=== PATIENT | male | born 1950 | race Caucasian/White ===

== ENCOUNTER 2018-05-15 22:39 | Inpatient (IN) | payer OTHER ==
[2018-05-15 22:48] VITALS: BMI 39.5
[2018-05-16] MEDS ORDERED: SODIUM CHLORIDE 1,000 ML IV SCH (02:00)
--- NOTE | 2018-05-16 02:20 | PDOC ---
History of Present Illness <Amberly Ramon - Last Filed: 05/16/18 07:03> - General History Source: Patient Exam Limitations: No Limitations - History of Present Illness Initial Comments: 05/16/18 02:17 Patient is a 67 year old male with h/o DM, Neuropathy, HLD, glaucoma, PAD, asthma/COPD, arthritis, and carotid endarterectomy, femoropopliteal, complaining of diarrhea 4 days. Patient states he's been having watery diarrhea and a lot of gas, with no blood no abdominal pain no fever no chills. He denies any antibiotic use, no recent travel, no contact. 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 Tonight states he was dizzylightheaded and his legs were wobbly. PMD: Dr. Orellana PMHX: as above PSOCHX: (+) cig 1/2PPD, (-) etoh, (-) drugs ALL: NKDA GENERAL/CONSTITUTIONAL: [No fever or chills. (+) weakness. No weight change.] HEAD, EYES, EARS, NOSE AND THROAT: [No change in vision. No ear pain or discharge. No sore throat.] CARDIOVASCULAR: [No chest pain or shortness of breath.] RESPIRATORY: [No cough, wheezing, or hemoptysis.] GASTROINTESTINAL: [No nausea, vomiting, (+) diarrhea, (-) constipation. No rectal bleeding.] GENITOURINARY: [No dysuria, frequency, or change in urination.] MUSCULOSKELETAL: [No joint or muscle swelling or pain. No neck or back pain.] SKIN AND BREASTS: [No rash or easy bruising.] NEUROLOGIC: [No headache, vertigo, loss of consciousness, or loss of sensation.] PSYCHIATRIC: [No depression or anxiety.] ENDOCRINE: [No increased thirst. No abnormal weight change.] HEMATOLOGIC/LYMPHATIC: [No anemia, easy bleeding, or history of blood clots.] ALLERGIC/IMMUNOLOGIC: [No hives or skin allergy. No latex allergy.] GENERAL: [The patient is awake, alert, and fully oriented, in no acute distress. ] HEAD: [Normal with no signs of trauma.] EYES: [Pupils equal, round and reactive to light, extraocular movements intact, sclera anicteric, conjunctiva clear.] ENT: [Ears normal, nares patent, oropharynx clear without exudates. Moist mucous membranes.] NECK: [Normal range of motion, supple without lymphadenopathy, JVD, or masses.] LUNGS: [Breath sounds equal, clear to auscultation bilaterally. No wheezes, and no crackles.] HEART: [Regular rate and rhythm, normal S1 and S2 without murmur, rub.] ABDOMEN: [Soft, nontender, normoactive bowel sounds. obese, No guarding, no rebound. No masses.] EXTREMITIES: [Normal range of motion, no edema. No clubbing or cyanosis. No cords, erythema, or tenderness.] NEUROLOGICAL: [Cranial nerves II through XII grossly intact. Normal speech, normal gait.] PSYCH: [Normal mood, normal affect.] SKIN: [Warm, Dry, normal turgor, no rashes or lesions noted.] <Chula Rosas - Last Filed: 05/16/18 07:44> - General Chief Complaint: Diarrhea Stated Complaint: DIARRHEA Time Seen by Provider: 05/16/18 01:40 Past History <mAberly Ramon - Last Filed: 05/16/18 07:03> - Past Medical History Anemia: No Asthma: No Cancer: No Cardiac Disorders: No CVA: No COPD: Yes CHF: No Dementia: No Diabetes: Yes (NIDDM) GI Disorders: No Disorders: No HTN: No Hypercholesterolemia: Yes Liver Disease: No Seizures: No Thyroid Disease: No Other medical history: glaucoma - Surgical History Abdominal Surgery: No Appendectomy: No Cardiac Surgery: No Cholecystectomy: No Lung Surgery: No Neurologic Surgery: No Orthopedic Surgery: No - Suicide/Smoking/Psychosocial Hx Smoking History: Current every day smoker Have you smoked in the past 12 months: Yes Number of Cigarettes Smoked Daily: 10 Information on smoking cessation initiated: No 'Breaking Loose' booklet given: 09/15/16 Hx Alcohol Use: No Drug/Substance Use Hx: No Substance Use Type: None Hx Substance Use Treatment: No <Chula Rosas - Last Filed: 05/16/18 07:44> - Past Medical History Allergies/Adverse Reactions: Allergies Allergy/AdvReac Type Severity Reaction Status Date / Time No Known Drug Allergies Allergy Verified 05/15/18 22:43 Home Medications: Ambulatory Orders Aspirin [ASA -] 81 mg PO DAILY #0 tab.chew 05/18/13 Clopidogrel Bisulfate [Plavix -] 75 mg PO DAILY #0 tablet 05/18/13 Multivitamin [Multiple Vitamins] 1 each PO DAILY #0 tablet 05/18/13 Simvastatin [Zocor -] 20 mg PO HS #0 tablet 05/18/13 metFORMIN HCL [Glucophage -] 500 mg PO BID #0 tablet 05/18/13 Oxycodone HCl/Acetaminophen [Percocet 10-325 mg Tablet] 1 - 2 tab PO Q4H PRN 03/25 Meloxicam 7.5 mg PO DAILY 09/15/16 Albuterol Sulfate Inhaler - [Ventolin Hfa Inhaler -] 1 - 2 inh PO QID PRN Zolpidem Tartrate [Ambien] 10 mg GT HS PRN #30 tablet MDD 1 01/06/17 Bimatoprost [Lumigan] 1 drop IO DAILY 05/16/18 Brimonidine Tartrate/Timolol [Combigan Eye Drops] 5 ml OP BID 05/16/18 Brinzolamide [Azopt] 5 ml OP TID 05/16/18 Ketorolac Tromethamine/Pf [Acuvail] 1 each OP QID 05/16/18 *Physical Exam - Vital Signs Last Vital Signs Temp Pulse Resp BP Pulse Ox 98.5 F 70 20 146/65 98 05/15/18 22:44 05/15/18 22:44 05/15/18 22:44 05/15/18 22:44 05/15/18 22:44 <Amberly Ramon - Last Filed: 05/16/18 07:03> - Vital Signs Last Vital Signs Temp Pulse Resp BP Pulse Ox 98.5 F 70 20 146/65 98 05/15/18 22:44 05/15/18 22:44 05/15/18 22:44 05/15/18 22:44 05/15/18 22:44 <Chula Rosas - Last Filed: 05/16/18 07:44> ED Treatment Course - LABORATORY CBC & Chemistry Diagram: 05/16/18 02:56 05/16/18 02:56 - ADDITIONAL ORDERS Additional order review: Laboratory Results 05/16/18 02:56 Sodium 141 Potassium 4.4 Chloride 111 H Carbon Dioxide 19 L D Anion Gap 11 BUN 30 H Creatinine 2.4 H Creat Clearance w eGFR 27.06 Random Glucose 151 H D Calcium 9.1 Total Bilirubin 0.2 AST 21 D ALT 28 D Alkaline Phosphatase 100 Creatine Kinase 118 Troponin I < 0.02 D Total Protein 7.3 Albumin 3.7 05/16/18 02:56 RBC 5.01 MCV 93.9 MCHC 32.9 RDW 14.0 MPV 9.3 Neutrophils % 59.2 Lymphocytes % 22.9 Monocytes % 7.2 Eosinophils % 10.5 H Basophils % 0.2 - Medications Given in the ED: ED Medications Discontinued Medications Generic Name Dose Route Start Last Admin Trade Name Freq PRN Reason Stop Dose Admin Metronidazole 500 mg in 100 mls @ 100 mls/hr 05/16/18 04:28 05/16/18 05:03 Flagyl 500mg Premixed Ivpb - IVPB 05/16/18 05:27 100 mls/hr ONCE ONE Administration Levofloxacin 500 mg in 100 mls @ 100 mls/hr 05/16/18 04:29 05/16/18 05:03 Levaquin 500 Mg Premixed Ivpb - IVPB 05/16/18 05:28 100 mls/hr ONCE ONE Administration Protocol <Amberly Ramon - Last Filed: 05/16/18 07:03> - LABORATORY CBC & Chemistry Diagram: 05/16/18 02:56 05/16/18 02:56 <Chula Rosas - Last Filed: 05/16/18 07:44> Medical Decision Making - Medical Decision Making 05/16/18 07:03 EXAM: CT ABDOMEN \T\ PELVIS CT W/O CONTR HISTORY: Diarrhea COMPARISON: None. FINDINGS: Abdomen Liver: Normal Spleen: Normal Pancreas: Normal Gallbladder: There is intermediate high density in the gallbladder suggesting stones and sludge. The gallbladder is mildly distended Stomach: Normal Small bowel: Normal Large bowel: Normal Appendix: Not seen Adrenals:Normal Kidneys: Normal Vascular: There are moderate atherosclerotic changes Lymphatic: Normal Peritoneal: No free peritoneal air or fluid Pelvis: Uterus: Not seen Rectum: Normal Bladder: Normal The inferior thorax: Normal General: Skeletal: Normal Abdominal wall: Normal IMPRESSION: No acute findings Individualized dose optimization techniques were used for this CT. THIS DOCUMENT HAS BEEN ELECTRONICALLY SIGNED Donal Ochoa MD 05/16/2018 06:16 EST <Amberly Ramon Last Filed: 05/16/18 07:03> - Medical Decision Making 05/16/18 02:17 Patient is a 67 year old male with h/o DM, Neuropathy, HLD, glaucoma, PAD, asthma/COPD, arthritis, and carotid endarterectomy, femoropopliteal, complaining of diarrhea 4 days. Patient has diarrhea of unknown etiology. Will send stool for C. difficile, culture, O&P Labs including troponin, EKG, chest x-ray IV fluids. Labs reviewed noted to have elevated creatinine 2.4, baseline 1.7, suggestive of dehydration. Case was discussed with Dr. Umana and will admit to the hospital. Recommend dose of Levaquin and Flagyl <Chula Rosas - Last Filed: 05/16/18 07:44> *DC/Admit/Observation/Transfer <Amberly Ramon - Last Filed: 05/16/18 07:03> - Discharge Dispostion Decision to Admit order: Yes <Chula Rosas - Last Filed: 05/16/18 07:44> Diagnosis at time of Disposition: Dehydration Diarrhea Qualifiers: Diarrhea type: unspecified type Qualified Code(s): R19.7 - Diarrhea, unspecified - Discharge Dispostion Condition at time of disposition: Stable - Referrals Referrals: Jermaine Orellana MD [Primary Care Provider] - - Patient Instructions - Post Discharge Activity
[2018-05-16 03:13] LABS: BASO % 0.2 % (0-2.0); EOS % 10.5 % (0-4.5); HEMATOCRIT 47.1 % (35.4-49); HEMOGLOBIN 15.5 GM/dL (11.7-16.9); LYMPH % 22.9 % (8-40); MCH 30.9 pg (25.7-33.7); MCHC 32.9 g/dl (32.0-35.9); MEAN CELL VOLUME 93.9 fl (80-96); MEAN PLT VOLUME 9.3 fl (7.5-11.1); MONO % 7.2 % (3.8-10.2); NEUT % 59.2 % (42.8-82.8); PLATELET COUNT 267 K/MM3 (134-434); RBC 5.01 M/mm3 (4.00-5.60); WHITE BLOOD COUNT 14.2 K/mm3 (4.0-10.0)
[2018-05-16 03:35] LABS: ALBUMIN 3.7 g/dl (3.4-5.0); ANION GAP 11 (8-16); BILIRUBIN,TOTAL 0.2 mg/dL (0.2-1.0); BLOOD UREA NITROGEN 30 mg/dL (7-18); CALCIUM 9.1 mg/dL (8.5-10.1); CHLORIDE 111 mmol/L (98-107); CO2 19 mmol/L (21-32); CREATININE 2.4 mg/dL (0.7-1.3); GLUCOSE,RANDOM 151 mg/dL (74-106); SGPT/ALT 28 U/L (12-78); SODIUM 141 mmol/L (136-145); TOT PROT 7.3 g/dl (6.4-8.2)
[2018-05-16 03:38] LABS: ALK PHOS 100 U/L (45-117)
[2018-05-16 03:39] LABS: POTASSIUM 4.4 mmol/L (3.5-5.1); SGOT/AST 21 U/L (15-37)
[2018-05-16] MEDS ORDERED: DEXTROSE 5%-0.45% SALINE 1,000 ML IV SCH (09:45)
[2018-05-16] MEDS ORDERED: PATIENT'S OWN MEDICATION (NON-FORMULARY) (Bimatoprost [Lumigan] 1 DROP) IO SCH (10:00)
[2018-05-16] MEDS ORDERED: PATIENT'S OWN MEDICATION (NON-FORMULARY) (Brimonidine Tartrate/Timolol [Combigan 0.2%-0.5% OP SCH (10:00)
--- NOTE | 2018-05-16 11:19 | CON.GI ---
Consult Consult Specialty:: GI Reason for Consultation:: diarrhea x 2 days - History of Present Illness History of Present Illness: Chart reviewed. Events noted. ED records reviewed. per initial intake: Patient is a 67 year old male with h/o DM, Neuropathy, HLD, glaucoma, PAD, asthma/COPD, arthritis, and carotid endarterectomy, femoropopliteal, complaining of diarrhea 4 days. Patient states he's been having watery diarrhea and a lot of gas, with no blood no abdominal pain no fever no chills. He denies any antibiotic use, no recent travel, no contact. 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 Tonight states he was dizzylightheaded and his legs were wobbly. The pt was seen in ED. His was at the beside. Acute onset, variable volume, watery bms up to q15 min x 2 days. Imroved while in ED. W/o nausea, vomiting, dyspepsia, abdominal pain, fever, chills, jaundice , tenismus. No melena, or hematochezia. Worse after meals, alleviated by NPO. No weight loss. No prior history of the same. Never had screening colonoscopy. No new medications, changes in diet. No eating out, travelling, or exposure to ill. 's asymptomatic. Using splenda for many years w/o issues. BS under control, around 137, postprandial, per . Family history's noncontributory. - History Source History Provided By: Patient, Family Member, Medical Record - Alcohol/Substance Use Hx Alcohol Use: No - Smoking History Smoking history: Current every day smoker Have you smoked in the past 12 months: Yes Aproximately how many cigarettes per day: 10 Home Medications - Allergies Allergies/Adverse Reactions: Allergies Allergy/AdvReac Type Severity Reaction Status Date / Time No Known Drug Allergies Allergy Verified 05/15/18 22:43 - Home Medications Home Medications: Ambulatory Orders Aspirin [ASA -] 81 mg PO DAILY #0 tab.chew 05/18/13 Clopidogrel Bisulfate [Plavix -] 75 mg PO DAILY #0 tablet 05/18/13 Multivitamin [Multiple Vitamins] 1 each PO DAILY #0 tablet 05/18/13 Simvastatin [Zocor -] 20 mg PO HS #0 tablet 05/18/13 metFORMIN HCL [Glucophage -] 500 mg PO BID #0 tablet 05/18/13 Oxycodone HCl/Acetaminophen [Percocet 10-325 mg Tablet] 1 - 2 tab PO Q4H PRN 03/25 Meloxicam 7.5 mg PO DAILY 09/15/16 Albuterol Sulfate Inhaler - [Ventolin Hfa Inhaler -] 1 - 2 inh PO QID PRN Zolpidem Tartrate [Ambien] 10 mg GT HS PRN #30 tablet MDD 1 01/06/17 Bimatoprost [Lumigan] 1 drop IO DAILY 05/16/18 Brimonidine Tartrate/Timolol [Combigan Eye Drops] 5 ml OP BID 05/16/18 Brinzolamide [Azopt] 5 ml OP TID 05/16/18 Ketorolac Tromethamine/Pf [Acuvail] 1 each OP QID 05/16/18 Family Disease History - Family Disease History Family History: Unremarkable Review of Systems Findings/Remarks: as per HPI, H&P,ED Physical Exam-GI Vital Signs: Vital Signs Temperature 98.5 F 05/15/18 22:44 Pulse Rate 70 05/15/18 22:44 Respiratory Rate 20 05/15/18 22:44 Blood Pressure 146/65 05/15/18 22:44 O2 Sat by Pulse Oximetry (%) 98 05/15/18 22:44 Constitutional: Yes: Well Nourished, No Distress, Calm Eyes: Yes: Conjunctiva Clear HENT: Yes: Atraumatic, Other (poor dental state) Neck: Yes: Supple Cardiovascular: Yes: Regular Rate and Rhythm Respiratory: Yes: Regular Gastrointestinal Inspection: No: Ascites, Distention ...Auscultate: Yes: Normoactive Bowel Sounds ...Palpate: Yes: Soft. No: Firm/Rigid, Guarding, Mass, Tenderness, Tenderness, Epigastium, Tenderness, Rebound Neurological: Yes: Alert, Oriented Labs: CBC, BMP 05/16/18 02:56 05/16/18 02:56 Laboratory Last Values WBC 14.2 K/mm3 (4.0-10.0) H 05/16/18 02:56 RBC 5.01 M/mm3 (4.00-5.60) 05/16/18 02:56 Hgb 15.5 GM/dL (11.7-16.9) 05/16/18 02:56 Hct 47.1 % (35.4-49) 05/16/18 02:56 MCV 93.9 fl (80-96) 05/16/18 02:56 MCH 30.9 pg (25.7-33.7) 05/16/18 02:56 MCHC 32.9 g/dl (32.0-35.9) 05/16/18 02:56 RDW 14.0 % (11.9-15.9) 05/16/18 02:56 Plt Count 267 K/MM3 (134-434) D 05/16/18 02:56 MPV 9.3 fl (7.5-11.1) 05/16/18 02:56 Absolute Neuts (auto) 8.4 # 05/16/18 02:56 Neutrophils % 59.2 % (42.8-82.8) 05/16/18 02:56 Lymphocytes % 22.9 % (8-40) 05/16/18 02:56 Monocytes % 7.2 % (3.8-10.2) 05/16/18 02:56 Eosinophils % 10.5 % (0-4.5) H 05/16/18 02:56 Basophils % 0.2 % (0-2.0) 05/16/18 02:56 Nucleated RBC % 0 % (0-0) 05/16/18 02:56 Sodium 141 mmol/L (136-145) 05/16/18 02:56 Potassium 4.4 mmol/L (3.5-5.1) 05/16/18 02:56 Chloride 111 mmol/L (98-107) H 05/16/18 02:56 Carbon Dioxide 19 mmol/L (21-32) L D 05/16/18 02:56 Anion Gap 11 (8-16) 05/16/18 02:56 BUN 30 mg/dL (7-18) H 05/16/18 02:56 Creatinine 2.4 mg/dL (0.7-1.3) H 05/16/18 02:56 Creat Clearance w eGFR 27.06 (>60) 05/16/18 02:56 Random Glucose 151 mg/dL (74-106) H D 05/16/18 02:56 Calcium 9.1 mg/dL (8.5-10.1) 05/16/18 02:56 Total Bilirubin 0.2 mg/dL (0.2-1.0) 05/16/18 02:56 AST 21 U/L (15-37) D 05/16/18 02:56 ALT 28 U/L (12-78) D 05/16/18 02:56 Alkaline Phosphatase 100 U/L (45-117) 05/16/18 02:56 Creatine Kinase 118 IU/L (39-308) 05/16/18 02:56 Troponin I < 0.02 ng/ml (0.00-0.05) D 05/16/18 02:56 Total Protein 7.3 g/dl (6.4-8.2) 05/16/18 02:56 Albumin 3.7 g/dl (3.4-5.0) 05/16/18 02:56 Imaging - Results Cat Scan: Report Reviewed (distended GB) Problem List - Problems (1) Gastroenteritis Code(s): K52.9 - NONINFECTIVE GASTROENTERITIS AND COLITIS, UNSPECIFIED (2) Diarrhea Code(s): R19.7 - DIARRHEA, UNSPECIFIED Qualifiers: Diarrhea type: unspecified type Qualified Code(s): R19.7 - Diarrhea, unspecified Assessment/Plan Acute onset watery diarrhea in a 67M with multiple chronic medical problems and HPI as above. Suspect viral/premade toxin/infectious gastroenteritis. Rule out bacterial/parasitic etiology. DM, artificial sweeteners may be contributing. Stool testing for infectious etiologies incl. c. diff. PO hydration [place] HGB A1C Thyroid function BRAT diet
[2018-05-16 11:28] LABS: BASO % 0.9 % (0-2.0); EOS % 8.8 % (0-4.5); HEMATOCRIT 39.8 % (35.4-49); HEMOGLOBIN 13.2 GM/dL (11.7-16.9); LYMPH % 18.5 % (8-40); MCH 31.1 pg (25.7-33.7); MCHC 33.1 g/dl (32.0-35.9); MEAN CELL VOLUME 93.8 fl (80-96); MEAN PLT VOLUME 8.8 fl (7.5-11.1); MONO % 8.7 % (3.8-10.2); NEUT % 63.1 % (42.8-82.8); PLATELET COUNT 203 K/MM3 (134-434); RBC 4.25 M/mm3 (4.00-5.60); RDW 13.8 % (11.9-15.9); WHITE BLOOD COUNT 13.8 K/mm3 (4.0-10.0)
--- NOTE | 2018-05-16 11:42 | EKG ---
Test Reason : Blood Pressure : / mmHG Vent. Rate : 075 BPM Atrial Rate : 075 BPM P-R Int : 172 ms QRS Dur : 098 ms QT Int : 402 ms P-R-T Axes : 035 -11 030 degrees QTc Int : 448 ms NORMAL SINUS RHYTHM WHEN COMPARED WITH ECG OF 03-NOV-2017 08:49, NO SIGNIFICANT CHANGE WAS FOUND Confirmed by EDIN LEAVITT MD ([id number]) on 05/16/2018 11:42:07 AM Referred By: Confirmed By:EDIN LEAVITT MD
[2018-05-16] MEDS ORDERED: ASPIRIN 81 MG CHEWABLE TABLETS ONE (13:19)
[2018-05-16] MEDS ORDERED: CLOPIDOGREL BISULFATE 75 MG TABLET (FP) ONE (13:19)
[2018-05-16] MEDS: ASPIRIN 81 MG CHEWABLE TABLETS PO SCH (13:20)
[2018-05-16] MEDS: CLOPIDOGREL BISULFATE 75 MG TABLET (FP) PO SCH (13:20)
[2018-05-16] MEDS: INSULIN SLIDING SCALE (NOVOLOG) 1 VIAL SQ SCH ×3 (13:51→21:52)
[2018-05-16] MEDS: CHOLESTYRAMINE/ASPARTAME 4 GM PACKET PO SCH ×4 (13:53→21:55)
[2018-05-16] MEDS ORDERED: BRINZOLAMIDE OP SCH (14:00)
--- NOTE | 2018-05-16 14:39 | CON.ID ---
Consult Consult Specialty:: infectious diseases Referred by:: Reason for Consultation:: dirrhoea,weakness - History of Present Illness Chief Complaint: dirrhoea History of Present Illness: 67 year old male with pmhx of DM, neuropathy, HLD, CKD, asthma, COPD, PAD and fem-pop surgery who presents to the ER with diarrhea. He says that he has been having severe diarrhea for the last 3 days. He complains of multiple episode per day. He says he has had over ten daily. He denies abdominal pain. He denies dysuria or hematuria. patient says he does not want to get admitted according to him his dirrhoea is ongoing and has not stopped at all and that he feels very weak was called in to evaluate the cause of dirrhoea and if this is infectious one currently patient is very agitated - History Source History Provided By: Patient Limitations to Obtaining History: No Limitations - Alcohol/Substance Use Hx Alcohol Use: No - Smoking History Smoking history: Current every day smoker Have you smoked in the past 12 months: Yes Aproximately how many cigarettes per day: 10 Home Medications - Allergies Allergies/Adverse Reactions: Allergies Allergy/AdvReac Type Severity Reaction Status Date / Time No Known Drug Allergies Allergy Verified 05/15/18 22:43 - Home Medications Home Medications: Ambulatory Orders Aspirin [ASA -] 81 mg PO DAILY #0 tab.chew 05/18/13 Clopidogrel Bisulfate [Plavix -] 75 mg PO DAILY #0 tablet 05/18/13 Multivitamin [Multiple Vitamins] 1 each PO DAILY #0 tablet 05/18/13 Simvastatin [Zocor -] 20 mg PO HS #0 tablet 05/18/13 metFORMIN HCL [Glucophage -] 500 mg PO BID #0 tablet 05/18/13 Oxycodone HCl/Acetaminophen [Percocet 10-325 mg Tablet] 1 - 2 tab PO Q4H PRN 03/25 Albuterol Sulfate Inhaler - [Ventolin HFA Inhaler -] 1 - 2 inh PO QID PRN Zolpidem Tartrate [Ambien] 10 mg GT HS PRN #30 tablet MDD 1 01/06/17 Bimatoprost [Lumigan] 1 drop IO DAILY 05/16/18 Brimonidine Tartrate/Timolol [Combigan 0.2%-0.5% Eye Drops] 5 ml OP BID Brinzolamide [Azopt] 5 ml OP TID 05/16/18 Ketorolac Tromethamine/Pf [Acuvail 0.45% Ophth Solution] 1 each OP QID 05/16/18 Brimonidine Tartrate [Alphagan 0.2% -] 1 drop OU BID drops 05/19/18 Timolol 0.5% [Timoptic 0.5%] 1 drop OU BID drops 05/19/18 Zolpidem Tartrate [Ambien] 5 mg PO HS PRN #30 tablet MDD 1 05/19/18 oxyCODONE HCL [Roxicodone -] 10 mg PO Q8H PRN #30 tablet MDD 3 05/19/18 Review of Systems - Review of Systems Constitutional: reports: No Symptoms Eyes: reports: No Symptoms HENT: reports: No Symptoms Neck: reports: No Symptoms Cardiovascular: reports: No Symptoms Respiratory: reports: No Symptoms Gastrointestinal: reports: Diarrhea Genitourinary: reports: No Symptoms Musculoskeletal: reports: No Symptoms Integumentary: reports: No Symptoms Neurological: reports: No Symptoms Endocrine: reports: No Symptoms Hematology/Lymphatic: reports: No Symptoms Psychiatric: reports: No Symptoms Physical Exam Vital Signs: Vital Signs Temperature 98.5 F 05/15/18 22:44 Pulse Rate 70 05/15/18 22:44 Respiratory Rate 20 05/15/18 22:44 Blood Pressure 146/65 05/15/18 22:44 O2 Sat by Pulse Oximetry (%) 98 05/15/18 22:44 Constitutional: Yes: Well Nourished, No Distress, Calm Eyes: Yes: Conjunctiva Clear Cardiovascular: Yes: Regular Rate and Rhythm Respiratory: Yes: Regular, CTA Bilaterally Gastrointestinal: Yes: Normal Bowel Sounds, Soft Musculoskeletal: Yes: WNL Extremities: Yes: WNL Neurological: Yes: Alert, Oriented Psychiatric: Yes: Alert, Oriented Labs: CBC, BMP 05/16/18 11:05 05/16/18 02:56 Imaging - Results Chest X-ray: Report Reviewed, Image Reviewed Cat Scan: Report Reviewed, Image Reviewed Ultrasound: Report Reviewed, Image Reviewed Assessment/Plan Problem List - Problems (1) Diarrhea Code(s): R19.7 - DIARRHEA, UNSPECIFIED Qualifiers: Diarrhea type: unspecified type Qualified Code(s): R19.7 - Diarrhea, unspecified (2) CAD (coronary artery disease) Assessment/Plan: Cont plavix Code(s): I25.10 - ATHSCL HEART DISEASE OF [place] CORONARY ARTERY W/O ANG PCTRS (3) HLD (hyperlipidemia) Assessment/Plan: Cont lipitor Code(s): E78.5 - HYPERLIPIDEMIA, UNSPECIFIED (4) COPD (chronic obstructive pulmonary disease) Code(s): J44.9 - CHRONIC OBSTRUCTIVE PULMONARY DISEASE, UNSPECIFIED looking at the history and patient symptoms there is worry that the patient might have infecve dirrhoea plan r/o cdiff r/o parasitic infections hydrations monitor for electrolytes rest as per the team will start him on vanco orally
--- NOTE | 2018-05-16 15:31 | CONSULT ---
Consult Consult Specialty:: Nephrology Reason for Consultation:: ABNER - History of Present Illness Chief Complaint: diarrhea History of Present Illness: Pt is a 67 year old male with pmhx of DM, neuropathy, HLD, CKD, asthma, COPD, PAD and fem-pop surgery who presents to the ER with diarrhea. He says that he has been having severe diarrhea for the last 3 days. He complains of multiple episode per day. He says he has had over ten daily. He denies abdominal pain. He was found to have elevated creatinine and I was called to evaluate him. He denies history of CKD. He denies dysuria or hematuria. He denies nsaid use. He is very agitated about being in the ER. - History Source History Provided By: Patient, Medical Record - Past Medical History Cardio/Vascular: Yes: HTN, Hyperlipdemia Pulmonary: Yes: COPD Renal/: Yes: Renal Inusuff Endocrine: Yes: Diabetes Mellitus - Past Surgical History Additional Surgical History: fem-pop bypass surgery - Alcohol/Substance Use Hx Alcohol Use: No - Smoking History Smoking history: Current every day smoker Have you smoked in the past 12 months: Yes Aproximately how many cigarettes per day: 10 Home Medications - Allergies Allergies/Adverse Reactions: Allergies Allergy/AdvReac Type Severity Reaction Status Date / Time No Known Drug Allergies Allergy Verified 05/15/18 22:43 - Home Medications Home Medications: Ambulatory Orders Aspirin [ASA -] 81 mg PO DAILY #0 tab.chew 05/18/13 Clopidogrel Bisulfate [Plavix -] 75 mg PO DAILY #0 tablet 05/18/13 Multivitamin [Multiple Vitamins] 1 each PO DAILY #0 tablet 05/18/13 Simvastatin [Zocor -] 20 mg PO HS #0 tablet 05/18/13 metFORMIN HCL [Glucophage -] 500 mg PO BID #0 tablet 05/18/13 Oxycodone HCl/Acetaminophen [Percocet 10-325 mg Tablet] 1 - 2 tab PO Q4H PRN 03/25 Meloxicam 7.5 mg PO DAILY 09/15/16 Albuterol Sulfate Inhaler - [Ventolin Hfa Inhaler -] 1 - 2 inh PO QID PRN Zolpidem Tartrate [Ambien] 10 mg GT HS PRN #30 tablet MDD 1 01/06/17 Bimatoprost [Lumigan] 1 drop IO DAILY 05/16/18 Brimonidine Tartrate/Timolol [Combigan Eye Drops] 5 ml OP BID 05/16/18 Brinzolamide [Azopt] 5 ml OP TID 05/16/18 Ketorolac Tromethamine/Pf [Acuvail] 1 each OP QID 05/16/18 Family Disease History - Family Disease History Family History: Denies Review of Systems - Review of Systems Constitutional: reports: Malaise. denies: Chills, Fever Eyes: reports: No Symptoms HENT: reports: No Symptoms Neck: reports: No Symptoms Cardiovascular: reports: No Symptoms Respiratory: reports: No Symptoms Gastrointestinal: reports: Diarrhea. denies: Dysphagia, Nausea, Vomiting Blood Genitourinary: reports: No Symptoms Musculoskeletal: reports: No Symptoms Integumentary: reports: No Symptoms Neurological: reports: No Symptoms Endocrine: reports: No Symptoms Hematology/Lymphatic: reports: No Symptoms Psychiatric: reports: No Symptoms Physical Exam Vital Signs: Vital Signs Temperature 98.5 F 05/15/18 22:44 Pulse Rate 70 05/15/18 22:44 Respiratory Rate 20 05/15/18 22:44 Blood Pressure 146/65 05/15/18 22:44 O2 Sat by Pulse Oximetry (%) 98 05/15/18 22:44 Constitutional: Yes: Anxious Eyes: Yes: Conjunctiva Clear HENT: Yes: Atraumatic Neck: Yes: Supple Cardiovascular: Yes: S1, S2 Respiratory: Yes: CTA Bilaterally Gastrointestinal: Yes: Soft, Abdomen, Obese Renal/: Yes: WNL Musculoskeletal: Yes: WNL Edema: No Integumentary: Yes: WNL Neurological: Yes: Oriented Psychiatric: Yes: Agitated Labs: CBC, BMP 05/16/18 11:05 05/16/18 02:56 Laboratory Tests 09/18/16 09/19/16 10/13/17 05:20 06:30 07:21 WBC Sodium Potassium Creatinine 1.5 H 1.2 1.7 H D Stool O & P Wet [place] O & P Permanent Slide 11/03/17 05/16/18 05/16/18 09:14 02:20 02:56 WBC 14.2 H Sodium Potassium Creatinine 1.7 H Stool O & P Wet [place] Pending O & P Permanent Slide Pending 05/16/18 05/16/18 02:56 11:05 WBC 13.8 H Sodium 141 Potassium 4.4 Creatinine 2.4 H Stool O & P Wet [place] O & P Permanent Slide Imaging - Results Chest X-ray: Report Reviewed Problem List - Problems (1) Dehydration Code(s): E86.0 - DEHYDRATION (2) Diarrhea Code(s): R19.7 - DIARRHEA, UNSPECIFIED Qualifiers: Diarrhea type: unspecified type Qualified Code(s): R19.7 - Diarrhea, unspecified (3) Gastroenteritis Code(s): K52.9 - NONINFECTIVE GASTROENTERITIS AND COLITIS, UNSPECIFIED (4) COPD (chronic obstructive pulmonary disease) Code(s): J44.9 - CHRONIC OBSTRUCTIVE PULMONARY DISEASE, UNSPECIFIED (5) Carotid stenosis, left Code(s): I65.22 - OCCLUSION AND STENOSIS OF LEFT CAROTID ARTERY Assessment/Plan Current Medications Generic Name Dose Route Start Last Admin Trade Name Freq PRN Reason Stop Dose Admin Aspirin 81 mg 05/16/18 10:00 05/16/18 13:20 Asa - PO 81 mg DAILY [facility] Administration Atorvastatin Calcium 10 mg 05/16/18 22:00 Lipitor - PO HS [facility] Brimonidine Tartrate 1 drop 05/16/18 10:00 Alphagan 0.2% - OU BID [facility] Cholestyramine Resin 4 gm 05/16/18 11:30 05/16/18 15:00 Questran Light Packet - PO Not Given BID [facility] Clopidogrel Bisulfate 75 mg 05/16/18 10:00 05/16/18 13:20 Plavix - PO 75 mg DAILY [facility] Administration Sodium Chloride 1,000 mls @ 150 mls/hr 05/16/18 02:00 05/16/18 03:25 Normal Saline - IV 150 mls/hr ASDIR [facility] Administration Dextrose/Sodium Chloride 1,000 mls @ 75 mls/hr 05/16/18 09:45 05/16/18 13:20 D5-1/2ns - IV 75 mls/hr ASDIR [facility] Administration Metronidazole 500 mg in 100 mls @ 100 mls/hr 05/16/18 10:00 05/16/18 13:20 Flagyl 500mg Premixed Ivpb - IVPB 100 mls/hr Q8H-IV [facility] Administration Levofloxacin 500 mg in 100 mls @ 100 mls/hr 05/16/18 10:00 05/16/18 13:53 Levaquin 500 Mg Premixed Ivpb - IVPB 100 mls/hr DAILY [facility] Administration Protocol Insulin Aspart 1 vial 05/16/18 11:00 05/16/18 13:51 Novolog Vial Sliding Scale - SQ Not Given ACHS [facility] Protocol Multivitamins/Minerals/Vitamin C 1 tab 05/16/18 10:00 Tab-A-Vit - PO DAILY [facility] Non-Formulary Medication 1 drop 05/16/18 10:00 Bimatoprost [Lumigan] IO DAILY [facility] Non-Formulary Medication 5 ml 05/16/18 14:00 Brinzolamide [Azopt] OP TID [facility] Timolol Maleate 1 drop 05/16/18 10:00 Timoptic 0.5% OU BID [facility] Impression 1. ABNER 2. CKD 3. COPD 4. DM 5. HTN 6. PVD 7. diarrhea 8. HLD 9. neuropathy Plan - check ua - send urine lytes - cont fluids - likely dehydration from diarrhea - stop mobic - stop metformin - check renal ultrasound Dr Paniagua
[2018-05-16] MEDS: BRIMONIDINE TARTRATE 0.2% OPHTHALMIC 5 ML BOTTLE OU SCH ×2 (17:33→21:51)
[2018-05-16] MEDS: MULTIVITAMINS (DAILY MVI) TABLET (FP) PO SCH (17:33)
[2018-05-16] MEDS: TIMOLOL 0.5% OPHTHALMIC SOL 5 ML BOTTLE OU SCH ×2 (17:34→21:52)
[2018-05-16] MEDS: SODIUM CHLORIDE 0.45% 1,000 ML IV SCH ×2 (17:44→21:55)
--- NOTE | 2018-05-16 19:08 | HP ---
Admitting History and Physical - Admission History of Present Illness: Pt is a 67 y/o male with PMH significant for DM, Neuropathy, HLD, glaucoma, PAD , asthma/COPD, arthritis, and carotid stenosis(s/P endarterectomy). Pt presents to the ER w/ complaints of diarrhea 4 days. Patient states he's been having watery diarrhea and a lot of gas, with no blood no abdominal pain no fever no chills. He denies any antibiotic use, no recent travel, no contact. He has been taking Imodium since with worsening of symptoms, last dose was [employer]. - Past Medical History Cardiovascular: Yes: HTN, Hyperlipdemia Pulmonary: Yes: COPD Renal/: Yes: Renal Inusuff Endocrine: Yes: Diabetes Mellitus - Past Surgical History Past Surgical History: Yes: Carotid Endarterectomy - Smoking History Smoking history: Current every day smoker Have you smoked in the past 12 months: Yes Aproximately how many cigarettes per day: 10 - Alcohol/Substance Use Hx Alcohol Use: No Home Medications - Allergies Allergies/Adverse Reactions: Allergies Allergy/AdvReac Type Severity Reaction Status Date / Time No Known Drug Allergies Allergy Verified 05/15/18 22:43 - Home Medications Home Medications: Ambulatory Orders Aspirin [ASA -] 81 mg PO DAILY #0 tab.chew 05/18/13 Clopidogrel Bisulfate [Plavix -] 75 mg PO DAILY #0 tablet 05/18/13 Multivitamin [Multiple Vitamins] 1 each PO DAILY #0 tablet 05/18/13 Simvastatin [Zocor -] 20 mg PO HS #0 tablet 05/18/13 metFORMIN HCL [Glucophage -] 500 mg PO BID #0 tablet 05/18/13 Oxycodone HCl/Acetaminophen [Percocet 10-325 mg Tablet] 1 - 2 tab PO Q4H PRN 03/25 Meloxicam 7.5 mg PO DAILY 09/15/16 Albuterol Sulfate Inhaler - [Ventolin Hfa Inhaler -] 1 - 2 inh PO QID PRN Zolpidem Tartrate [Ambien] 10 mg GT HS PRN #30 tablet MDD 1 01/06/17 Bimatoprost [Lumigan] 1 drop IO DAILY 05/16/18 Brimonidine Tartrate/Timolol [Combigan Eye Drops] 5 ml OP BID 08/06/18 Brinzolamide [Azopt] 5 ml OP TID 05/16/18 Ketorolac Tromethamine/Pf [Acuvail] 1 each OP QID 05/16/18 Family Disease History - Family Disease History Family History: Unremarkable Review of Systems - Review of Systems Constitutional: reports: Loss of Appetite HENT: reports: No Symptoms Neck: reports: No Symptoms Cardiovascular: reports: No Symptoms Respiratory: reports: No Symptoms Gastrointestinal: reports: Diarrhea Genitourinary: reports: No Symptoms Physical Examination Vital Signs: Vital Signs Temperature 97.9 F 05/16/18 10:00 Pulse Rate 75 05/16/18 10:00 Respiratory Rate 19 05/16/18 10:00 Blood Pressure 153/83 05/16/18 10:00 O2 Sat by Pulse Oximetry (%) 98 05/15/18 22:44 Constitutional: Yes: Well Nourished Neck: Yes: WNL, Supple Cardiovascular: Yes: WNL, Regular Rate and Rhythm Respiratory: Yes: WNL, Regular, CTA Bilaterally Gastrointestinal: Yes: WNL, Normal Bowel Sounds, Soft Musculoskeletal: Yes: WNL Extremities: Yes: WNL Edema: No Neurological: Yes: WNL, Alert, Oriented ...Motor Strength: WNL Labs: CBC, BMP 05/16/18 11:05 05/16/18 02:56 Problem List - Problems (1) Diarrhea Assessment/Plan: Check stool studies Cont IVF Cont IV antibxs GI and ID consults Code(s): R19.7 - DIARRHEA, UNSPECIFIED Qualifiers: Diarrhea type: unspecified type Qualified Code(s): R19.7 - Diarrhea, unspecified (2) CAD (coronary artery disease) Assessment/Plan: Cont plavix Code(s): I25.10 - ATHSCL HEART DISEASE OF [place] CORONARY ARTERY W/O ANG PCTRS (3) HLD (hyperlipidemia) Assessment/Plan: Cont lipitor Code(s): E78.5 - HYPERLIPIDEMIA, UNSPECIFIED (4) COPD (chronic obstructive pulmonary disease) Code(s): J44.9 - CHRONIC OBSTRUCTIVE PULMONARY DISEASE, UNSPECIFIED
[2018-05-16] MEDS ORDERED: PT OWN MED DRAWER 7, Y5N ONE (21:43)
[2018-05-16] MEDS ORDERED: INSULIN (NOVOLOG) ASPART 100 UNITS/ML 10ML VIAL ONE (21:43)
[2018-05-16] MEDS: ATORVASTATIN CA 10 MG TABLET (FP) PO SCH (21:50)
[2018-05-16 23:53] LABS: URINE APPEARANCE SLCLOUDY; URINE BILIRUBIN NEGATIVE (<2.0 mg/dL); URINE COLOR YELLOW; URINE GLUCOSE (UA) 2+ (NEGATIVE); URINE KETONE NEGATIVE (NEGATIVE); URINE LEUK ESTERASE NEGATIVE (NEGATIVE); URINE NITRITE NEGATIVE (NEGATIVE); URINE UROBILINOGEN NEGATIVE mg/dL (0.2-1.0)
[2018-05-16 23:55] LABS: URINE PROTEIN 3+ (NEGATIVE)
[2018-05-16 23:59] LABS: EPI CELLS RARE /HPF (FEW); URINE MUCUS RARE
[2018-05-17] MEDS ORDERED: PT OWN MED DRAWER 7, Y5N ONE (00:39)
[2018-05-17] MEDS: ZOLPIDEM TARTRATE 5 MG TABLET PO PRN (01:12)
[2018-05-17] MEDS: VANCOMYCIN 250 MG/5 ML ORAL SOLUTION PO SCH ×3 (01:13→11:35)
[2018-05-17] MEDS: INSULIN SLIDING SCALE (NOVOLOG) 1 VIAL SQ SCH ×4 (06:29→22:24)
[2018-05-17 08:06] LABS: BASO % 0.8 % (0-2.0); EOS % 8.1 % (0-4.5); HEMATOCRIT 39.9 % (35.4-49); HEMOGLOBIN 13.3 GM/dL (11.7-16.9); LYMPH % 20.4 % (8-40); MCH 31.4 pg (25.7-33.7); MCHC 33.2 g/dl (32.0-35.9); MEAN CELL VOLUME 94.6 fl (80-96); MEAN PLT VOLUME 9.1 fl (7.5-11.1); MONO % 8.7 % (3.8-10.2); PLATELET COUNT 201 K/MM3 (134-434); RBC 4.22 M/mm3 (4.00-5.60); RDW 13.8 % (11.9-15.9); WHITE BLOOD COUNT 11.6 K/mm3 (4.0-10.0)
[2018-05-17] MEDS: MULTIVITAMINS (DAILY MVI) TABLET (FP) PO SCH (09:08)
[2018-05-17] MEDS: CLOPIDOGREL BISULFATE 75 MG TABLET (FP) PO SCH (09:08)
[2018-05-17] MEDS: CHOLESTYRAMINE/ASPARTAME 4 GM PACKET PO SCH ×2 (09:15→22:23)
[2018-05-17] MEDS: ASPIRIN 81 MG CHEWABLE TABLETS PO SCH (09:16)
[2018-05-17] MEDS: TIMOLOL 0.5% OPHTHALMIC SOL 5 ML BOTTLE OU SCH ×2 (09:28→22:23)
[2018-05-17] MEDS: BRIMONIDINE TARTRATE 0.2% OPHTHALMIC 5 ML BOTTLE OU SCH ×2 (09:32→22:23)
[2018-05-17 10:01] LABS: ALBUMIN 3.3 g/dl (3.4-5.0); ALK PHOS 80 U/L (45-117); ANION GAP 14 (8-16); BILIRUBIN,TOTAL 0.5 mg/dL (0.2-1.0); BLOOD UREA NITROGEN 27 mg/dL (7-18); CALCIUM 8.3 mg/dL (8.5-10.1); CHLORIDE 116 mmol/L (98-107); CO2 16 mmol/L (21-32); CREATININE 2.1 mg/dL (0.7-1.3); GLUCOSE,RANDOM 114 mg/dL (74-106); POTASSIUM 4.3 mmol/L (3.5-5.1); SGOT/AST 18 U/L (15-37); SGPT/ALT 21 U/L (12-78); SODIUM 146 mmol/L (136-145); TOT PROT 6.1 g/dl (6.4-8.2)
--- NOTE | 2018-05-17 13:42 | PN ---
Progress Note, Physician History of Present Illness: Pt seen and examined at bedside. He is awake and alert. He says that he has not eaten any food as he is afraid of having diarrhea. He has not had any bowel movements since admission. He denies abdominal pain. - Current Medication List Current Medications: Active Medications Aspirin (Asa -) 81 mg PO DAILY [facility] Last Admin: 05/17/18 09:16 Dose: Not Given Atorvastatin Calcium (Lipitor -) 10 mg PO HS [facility] Last Admin: 05/16/18 21:50 Dose: 10 mg Brimonidine Tartrate (Alphagan 0.2% -) 1 drop OU BID [facility] Last Admin: 05/17/18 09:32 Dose: 1 drop Cholestyramine Resin (Questran Light Packet -) 4 gm PO BID [facility] Last Admin: 05/17/18 09:15 Dose: Not Given Clopidogrel Bisulfate (Plavix -) 75 mg PO DAILY [facility] Last Admin: 05/17/18 09:08 Dose: Not Given Metronidazole (Flagyl 500mg Premixed Ivpb -) 500 mg in 100 mls @ 100 mls/hr IVPB Q8H-IV [facility] Last Admin: 05/17/18 09:08 Dose: 100 mls/hr Levofloxacin (Levaquin 500 Mg Premixed Ivpb -) 500 mg in 100 mls @ 100 mls/hr IVPB DAILY [facility]; Protocol Last Admin: 05/17/18 10:47 Dose: 100 mls/hr Sodium Chloride (1/2 Normal Saline) 1,000 mls @ 83 mls/hr IV ASDIR [facility] Last Admin: 05/16/18 21:55 Dose: 83 mls/hr Insulin Aspart (Novolog Vial Sliding Scale -) 1 vial SQ ACHS [facility]; Protocol Last Admin: 05/17/18 11:34 Dose: Not Given Multivitamins/Minerals/Vitamin C (Tab-A-Vit -) 1 tab PO DAILY [facility] Last Admin: 05/17/18 09:08 Dose: 1 tab Non-Formulary Medication (Bimatoprost [Lumigan]) 1 drop IO DAILY [facility] Non-Formulary Medication (Brinzolamide [Azopt]) 5 ml OP TID [facility] Oxycodone/Acetaminophen (Percocet 5/325 -) 1 combo PO Q8H PRN PRN Reason: pain Last Admin: 05/17/18 05:59 Dose: 1 combo Timolol Maleate (Timoptic 0.5%) 1 drop OU BID [facility] Last Admin: 05/17/18 09:28 Dose: 1 drop Vancomycin HCl (Vancomycin Oral Solution) 125 mg PO Q6HPO [facility] Last Admin: 05/17/18 11:35 Dose: 125 mg Zolpidem Tartrate (Ambien -) 5 mg PO HS PRN PRN Reason: INSOMNIA Last Admin: 05/17/18 01:12 Dose: 5 mg - Objective Vital Signs: Vital Signs Temperature 98 F 05/17/18 09:00 Pulse Rate 75 05/17/18 09:00 Respiratory Rate 20 05/17/18 09:00 Blood Pressure 140/90 05/17/18 09:00 O2 Sat by Pulse Oximetry (%) 98 05/16/18 21:00 Constitutional: Yes: Anxious Eyes: Yes: Conjunctiva Clear HENT: Yes: Atraumatic Neck: Yes: Supple Cardiovascular: Yes: S1, S2 Respiratory: Yes: CTA Bilaterally Gastrointestinal: Yes: Normal Bowel Sounds, Soft Genitourinary: Yes: WNL Musculoskeletal: Yes: WNL Edema: No Neurological: Yes: Oriented Psychiatric: Yes: Oriented, Agitated Labs: CBC, BMP 05/17/18 06:00 05/17/18 06:00 - ....Imaging Ultrasound: Report Reviewed Problem List - Problems (1) Dehydration Code(s): E86.0 - DEHYDRATION (2) Diarrhea Code(s): R19.7 - DIARRHEA, UNSPECIFIED Qualifiers: Diarrhea type: unspecified type Qualified Code(s): R19.7 - Diarrhea, unspecified (3) Gastroenteritis Code(s): K52.9 - NONINFECTIVE GASTROENTERITIS AND COLITIS, UNSPECIFIED (4) COPD (chronic obstructive pulmonary disease) Code(s): J44.9 - CHRONIC OBSTRUCTIVE PULMONARY DISEASE, UNSPECIFIED (5) Carotid stenosis, left Code(s): I65.22 - OCCLUSION AND STENOSIS OF LEFT CAROTID ARTERY Assessment/Plan Current Medications Generic Name Dose Route Start Last Admin Trade Name Freq PRN Reason Stop Dose Admin Aspirin 81 mg 05/16/18 10:00 05/17/18 09:16 Asa - PO Not Given DAILY [facility] Atorvastatin Calcium 10 mg 05/16/18 22:00 05/16/18 21:50 Lipitor - PO 10 mg HS [facility] Administration Brimonidine Tartrate 1 drop 05/16/18 10:00 05/17/18 09:32 Alphagan 0.2% - OU 1 drop BID [facility] Administration Cholestyramine Resin 4 gm 05/16/18 11:30 05/17/18 09:15 Questran Light Packet - PO Not Given BID [facility] Clopidogrel Bisulfate 75 mg 05/16/18 10:00 05/17/18 09:08 Plavix - PO Not Given DAILY [facility] Metronidazole 500 mg in 100 mls @ 100 mls/hr 05/16/18 10:00 05/17/18 09:08 Flagyl 500mg Premixed Ivpb - IVPB 100 mls/hr Q8H-IV [facility] Administration Levofloxacin 500 mg in 100 mls @ 100 mls/hr 05/16/18 10:00 05/17/18 10:47 Levaquin 500 Mg Premixed Ivpb - IVPB 100 mls/hr DAILY [facility] Administration Protocol Sodium Chloride 1,000 mls @ 83 mls/hr 05/16/18 15:45 05/16/18 21:55 1/2 Normal Saline IV 83 mls/hr ASDIR [facility] Administration Insulin Aspart 1 vial 05/16/18 11:00 05/17/18 11:34 Novolog Vial Sliding Scale - SQ Not Given ACHS [facility] Protocol Multivitamins/Minerals/Vitamin C 1 tab 05/16/18 10:00 05/17/18 09:08 Tab-A-Vit - PO 1 tab DAILY [facility] Administration Non-Formulary Medication 1 drop 05/16/18 10:00 Bimatoprost [Lumigan] IO DAILY [facility] Non-Formulary Medication 5 ml 05/16/18 14:00 Brinzolamide [Azopt] OP TID [facility] Oxycodone/Acetaminophen 1 combo 05/17/18 02:24 05/17/18 05:59 Percocet 5/325 - PO 1 combo Q8H PRN Administration pain Timolol Maleate 1 drop 05/16/18 10:00 05/17/18 09:28 Timoptic 0.5% OU 1 drop BID [facility] Administration Vancomycin HCl 125 mg 05/17/18 00:00 05/17/18 11:35 Vancomycin Oral Solution PO 125 mg Q6HPO [facility] Administration Zolpidem Tartrate 5 mg 05/16/18 22:31 05/17/18 01:12 Ambien - PO 5 mg HS PRN Administration INSOMNIA Impression 1. ABNER 2. CKD 3. COPD 4. DM 5. HTN 6. PVD 7. diarrhea 8. HLD 9. neuropathy 10. left renal simple cyst 11. 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
[2018-05-17] MEDS: DEXTROSE 5%-1/3 NS - 500 ML IV SCH (14:00)
--- NOTE | 2018-05-17 14:24 | PN ---
Progress Note, Physician History of Present Illness: improving still with dirrhoea reports noted awaiting for rest of the reports - Current Medication List Current Medications: Active Medications Aspirin (Asa -) [address] [facility] Last Admin: 05/17/18 09:16 Dose: Not Given Atorvastatin Calcium (Lipitor -) [address] [facility] Last Admin: 05/16/18 21:50 Dose: 10 mg Brimonidine Tartrate (Alphagan 0.2% -) [address] [facility] Last Admin: 05/17/18 09:32 Dose: 1 drop Cholestyramine Resin (Questran Light Packet -) 4 gm PO BID [facility] Last Admin: 05/17/18 09:15 Dose: Not Given Clopidogrel Bisulfate (Plavix -) [address] [facility] Last Admin: 05/17/18 09:08 Dose: Not Given Metronidazole (Flagyl 500mg Premixed Ivpb -) 500 mg in 100 mls @ 100 mls/hr IVPB Q8H-IV [facility] Last Admin: 05/17/18 09:08 Dose: 100 mls/hr Levofloxacin (Levaquin 500 Mg Premixed Ivpb -) 500 mg in 100 mls @ 100 mls/hr IVPB DAILY [facility]; Protocol Last Admin: 05/17/18 10:47 Dose: 100 mls/hr Dextrose/Sodium Chloride (D5-1/3ns -) 500 mls @ 100 mls/hr IV ASDIR [facility] Insulin Aspart (Novolog Vial Sliding Scale -) [address] [facility]; Protocol Last Admin: 05/17/18 11:34 Dose: Not Given Multivitamins/Minerals/Vitamin C (Tab-A-Vit -) [address] [facility] Last Admin: 05/17/18 09:08 Dose: 1 tab Non-Formulary Medication (Bimatoprost [Lumigan]) [address] [facility] Non-Formulary Medication (Brinzolamide [Azopt]) [address] [facility] Oxycodone/Acetaminophen (Percocet 5/325 -) 1 combo PO Q8H PRN PRN Reason: pain Last Admin: 05/17/18 05:59 Dose: 1 combo Timolol Maleate (Timoptic 0.5%) 1 drop OU BID [facility] Last Admin: 05/17/18 09:28 Dose: 1 drop Vancomycin HCl (Vancomycin Oral Solution) [address] [facility] Last Admin: 05/17/18 11:35 Dose: 125 mg Zolpidem Tartrate (Ambien -) 5 mg PO HS PRN PRN Reason: INSOMNIA Last Admin: 05/17/18 01:12 Dose: 5 mg - Objective Vital Signs: Vital Signs Temperature 98 F 05/17/18 09:00 Pulse Rate 75 05/17/18 09:00 Respiratory Rate 20 05/17/18 09:00 Blood Pressure 140/90 05/17/18 09:00 O2 Sat by Pulse Oximetry (%) 98 05/16/18 21:00 Constitutional: Yes: No Distress, Calm Cardiovascular: Yes: Regular Rate and Rhythm Respiratory: Yes: Regular, CTA Bilaterally Gastrointestinal: Yes: Normal Bowel Sounds, Soft Musculoskeletal: Yes: WNL Extremities: Yes: WNL Neurological: Yes: Alert, Oriented Psychiatric: Yes: Alert, Oriented Labs: CBC, BMP 05/17/18 06:00 05/17/18 06:00 Assessment/Plan Problem List - Problems (1) Diarrhea Code(s): R19.7 - DIARRHEA, UNSPECIFIED Qualifiers: Diarrhea type: unspecified type Qualified Code(s): R19.7 - Diarrhea, unspecified (2) CAD (coronary artery disease) Assessment/Plan: Cont plavix Code(s): I25.10 - ATHSCL HEART DISEASE OF [place] CORONARY ARTERY W/O ANG PCTRS (3) HLD (hyperlipidemia) Assessment/Plan: Cont lipitor Code(s): E78.5 - HYPERLIPIDEMIA, UNSPECIFIED (4) COPD (chronic obstructive pulmonary disease) Code(s): J44.9 - CHRONIC OBSTRUCTIVE PULMONARY DISEASE, UNSPECIFIED looking at the history and patient symptoms there is worry that the patient might have infecve dirrhoea plan cdiff negative will stop vanco and monitor hydration monitor creatinine
[2018-05-17] MEDS ORDERED: ACETAMINOPHEN 325 MG TABLET (FP) PO PRN (16:21)
[2018-05-17] MEDS ORDERED: oxyCODONE HCL 5 MG TABLET PO PRN (16:22)
[2018-05-17] MEDS ORDERED: INSULIN (NOVOLOG) ASPART 100 UNITS/ML 10ML VIAL ONE ×2 (17:23→21:51)
--- NOTE | 2018-05-17 19:45 | PN ---
Progress Note, Physician - Current Medication List Current Medications: Active Medications Acetaminophen (Tylenol -) 325 mg PO Q8H PRN PRN Reason: PAIN- Aspirin (Asa -) 81 mg PO DAILY [facility] Last Admin: 05/17/18 09:16 Dose: Not Given Atorvastatin Calcium (Lipitor -) 10 mg PO HS [facility] Last Admin: 05/16/18 21:50 Dose: 10 mg Brimonidine Tartrate (Alphagan 0.2% -) 1 drop OU BID [facility] Last Admin: 05/17/18 09:32 Dose: 1 drop Cholestyramine Resin (Questran Light Packet -) 4 gm PO BID [facility] Last Admin: 05/17/18 09:15 Dose: Not Given Clopidogrel Bisulfate (Plavix -) 75 mg PO DAILY [facility] Last Admin: 05/17/18 09:08 Dose: Not Given Metronidazole (Flagyl 500mg Premixed Ivpb -) 500 mg in 100 mls @ 100 mls/hr IVPB Q8H-IV [facility] Last Admin: 05/17/18 17:09 Dose: 100 mls/hr Levofloxacin (Levaquin 500 Mg Premixed Ivpb -) 500 mg in 100 mls @ 100 mls/hr IVPB DAILY [facility]; Protocol Last Admin: 05/17/18 10:47 Dose: 100 mls/hr Dextrose/Sodium Chloride (D5-1/3ns -) 500 mls @ 100 mls/hr IV ASDIR [facility] Last Admin: 05/17/18 14:00 Dose: Not Given Insulin Aspart (Novolog Vial Sliding Scale -) 1 vial SQ ACHS [facility]; Protocol Last Admin: 05/17/18 17:36 Dose: 2 units Multivitamins/Minerals/Vitamin C (Tab-A-Vit -) 1 tab PO DAILY [facility] Last Admin: 05/17/18 09:08 Dose: 1 tab Non-Formulary Medication (Bimatoprost [Lumigan]) 1 drop IO DAILY [facility] Non-Formulary Medication (Brinzolamide [Azopt]) 5 ml OP TID [facility] Oxycodone HCl (Roxicodone -) 5 mg PO Q8H PRN PRN Reason: PAIN- Timolol Maleate (Timoptic 0.5%) 1 drop OU BID [facility] Last Admin: 05/17/18 09:28 Dose: 1 drop Zolpidem Tartrate (Ambien -) 5 mg PO HS PRN PRN Reason: INSOMNIA Last Admin: 05/17/18 01:12 Dose: 5 mg - Objective Vital Signs: Vital Signs Temperature 98 F 05/17/18 09:00 Pulse Rate 75 05/17/18 09:00 Respiratory Rate 20 05/17/18 09:00 Blood Pressure 140/90 05/17/18 09:00 O2 Sat by Pulse Oximetry (%) 98 05/16/18 21:00 Labs: CBC, BMP 05/17/18 06:00 05/17/18 06:00 Problem List - Problems (1) Diarrhea Code(s): R19.7 - DIARRHEA, UNSPECIFIED Qualifiers: Diarrhea type: unspecified type Qualified Code(s): R19.7 - Diarrhea, unspecified (2) CAD (coronary artery disease) Code(s): I25.10 - ATHSCL HEART DISEASE OF [place] CORONARY ARTERY W/O ANG PCTRS (3) HLD (hyperlipidemia) Code(s): E78.5 - HYPERLIPIDEMIA, UNSPECIFIED (4) COPD (chronic obstructive pulmonary disease) Code(s): J44.9 - CHRONIC OBSTRUCTIVE PULMONARY DISEASE, UNSPECIFIED
[2018-05-17] MEDS: ACETAMINOPHEN 325 MG TABLET (FP) PO PRN (20:11)
[2018-05-17] MEDS: oxyCODONE HCL 5 MG TABLET PO PRN (20:11)
[2018-05-17] MEDS: ATORVASTATIN CA 10 MG TABLET (FP) PO SCH (22:23)
[2018-05-18] MEDS: DEXTROSE 5%-1/3 NS - 500 ML IV SCH (00:18)
[2018-05-18] MEDS: INSULIN SLIDING SCALE (NOVOLOG) 1 VIAL SQ SCH ×5 (06:21→21:21)
[2018-05-18 08:54] LABS: ALBUMIN 3.2 g/dl (3.4-5.0); BLOOD UREA NITROGEN 23 mg/dL (7-18); CALCIUM 8.3 mg/dL (8.5-10.1); CO2 19 mmol/L (21-32); GLUCOSE,RANDOM 168 mg/dL (74-106)
[2018-05-18 08:59] LABS: ALK PHOS 78 U/L (45-117); BILIRUBIN,TOTAL 0.4 mg/dL (0.2-1.0); CREATININE 1.9 mg/dL (0.7-1.3); SGOT/AST 19 U/L (15-37); SGPT/ALT 21 U/L (12-78); TOT PROT 5.9 g/dl (6.4-8.2)
[2018-05-18 09:16] LABS: ANION GAP 8 (8-16); CHLORIDE 112 mmol/L (98-107); SODIUM 140 mmol/L (136-145)
[2018-05-18] MEDS ORDERED: PT OWN MED DRAWER 7, Y5N ONE ×2 (09:37→21:13)
[2018-05-18] MEDS: MULTIVITAMINS (DAILY MVI) TABLET (FP) PO SCH (09:45)
[2018-05-18] MEDS: CHOLESTYRAMINE/ASPARTAME 4 GM PACKET PO SCH ×3 (09:45→21:19)
[2018-05-18] MEDS: ACETAMINOPHEN 325 MG TABLET (FP) PO PRN ×2 (09:45→17:26)
[2018-05-18] MEDS: ASPIRIN 81 MG CHEWABLE TABLETS PO SCH (09:45)
[2018-05-18] MEDS: oxyCODONE HCL 5 MG TABLET PO PRN ×2 (09:45→17:26)
[2018-05-18] MEDS: BRIMONIDINE TARTRATE 0.2% OPHTHALMIC 5 ML BOTTLE OU SCH ×2 (09:46→21:15)
[2018-05-18] MEDS: CLOPIDOGREL BISULFATE 75 MG TABLET (FP) PO SCH (09:46)
[2018-05-18] MEDS: TIMOLOL 0.5% OPHTHALMIC SOL 5 ML BOTTLE OU SCH ×2 (09:46→21:15)
--- NOTE | 2018-05-18 10:10 | PN ---
Progress Note, Physician History of Present Illness: Pt seen and examined at bedside. He is awake and alert. He has not had diarrhea. He does not want fluids during the day. - Current Medication List Current Medications: Active Medications Acetaminophen (Tylenol -) 650 mg PO Q8H PRN PRN Reason: PAIN 7-10 Last Admin: 05/18/18 09:45 Dose: 650 mg Aspirin (Asa -) 81 mg PO DAILY [facility] Last Admin: 05/18/18 09:45 Dose: 81 mg Atorvastatin Calcium (Lipitor -) 10 mg PO HS [facility] Last Admin: 05/17/18 22:23 Dose: 10 mg Brimonidine Tartrate (Alphagan 0.2% -) 1 drop OU BID [facility] Last Admin: 05/18/18 09:46 Dose: 1 drop Cholestyramine Resin (Questran Light Packet -) 4 gm PO BID [facility] Last Admin: 05/18/18 09:45 Dose: 4 gm Clopidogrel Bisulfate (Plavix -) 75 mg PO DAILY [facility] Last Admin: 05/18/18 09:46 Dose: 75 mg Metronidazole (Flagyl 500mg Premixed Ivpb -) 500 mg in 100 mls @ 100 mls/hr IVPB Q8H-IV [facility] Last Admin: 05/18/18 01:18 Dose: 100 mls/hr Levofloxacin (Levaquin 500 Mg Premixed Ivpb -) 500 mg in 100 mls @ 100 mls/hr IVPB DAILY [facility]; Protocol Last Admin: 05/18/18 09:45 Dose: 100 mls/hr Dextrose/Sodium Chloride (D5-1/3ns -) 500 mls @ 100 mls/hr IV ASDIR [facility] Last Admin: 05/18/18 00:18 Dose: 100 mls/hr Insulin Aspart (Novolog Vial Sliding Scale -) 1 vial SQ ACHS [facility]; Protocol Last Admin: 05/18/18 06:21 Dose: Not Given Multivitamins/Minerals/Vitamin C (Tab-A-Vit -) 1 tab PO DAILY [facility] Last Admin: 05/18/18 09:45 Dose: 1 tab Non-Formulary Medication (Bimatoprost [Lumigan]) 1 drop IO DAILY [facility] Non-Formulary Medication (Brinzolamide [Azopt]) 5 ml OP TID [facility] Oxycodone HCl (Roxicodone -) 10 mg PO Q8H PRN PRN Reason: PAIN 7-10 Last Admin: 05/18/18 09:45 Dose: 10 mg Timolol Maleate (Timoptic 0.5%) 1 drop OU BID [facility] Last Admin: 05/18/18 09:46 Dose: 1 drop Zolpidem Tartrate (Ambien -) 5 mg PO HS PRN PRN Reason: INSOMNIA Last Admin: 05/17/18 01:12 Dose: 5 mg - Objective Vital Signs: Vital Signs Temperature 97.5 F L 05/18/18 06:00 Pulse Rate 55 L 05/18/18 06:00 Respiratory Rate 20 05/18/18 06:00 Blood Pressure 163/92 05/18/18 06:00 O2 Sat by Pulse Oximetry (%) 97 05/17/18 21:00 Constitutional: Yes: Calm Eyes: Yes: Conjunctiva Clear HENT: Yes: Atraumatic Neck: Yes: Supple Cardiovascular: Yes: S1, S2 Respiratory: Yes: CTA Bilaterally Gastrointestinal: Yes: Soft, Abdomen, Obese Genitourinary: Yes: WNL Musculoskeletal: Yes: WNL Edema: Yes Edema: LLE: Trace, RLE: Trace Neurological: Yes: Oriented Psychiatric: Yes: Oriented Labs: CBC, BMP 05/17/18 06:00 05/18/18 07:00 Problem List - Problems (1) Dehydration Code(s): E86.0 - DEHYDRATION (2) Diarrhea Code(s): R19.7 - DIARRHEA, UNSPECIFIED Qualifiers: Diarrhea type: unspecified type Qualified Code(s): R19.7 - Diarrhea, unspecified (3) Gastroenteritis Code(s): K52.9 - NONINFECTIVE GASTROENTERITIS AND COLITIS, UNSPECIFIED (4) COPD (chronic obstructive pulmonary disease) Code(s): J44.9 - CHRONIC OBSTRUCTIVE PULMONARY DISEASE, UNSPECIFIED (5) Carotid stenosis, left Code(s): I65.22 - OCCLUSION AND STENOSIS OF LEFT CAROTID ARTERY Assessment/Plan Current Medications Generic Name Dose Route Start Last Admin Trade Name Freq PRN Reason Stop Dose Admin Acetaminophen 650 mg 05/17/18 20:03 05/18/18 09:45 Tylenol - PO 650 mg Q8H PRN Administration PAIN 7-10 Aspirin 81 mg 05/16/18 10:00 05/18/18 09:45 Asa - PO 81 mg DAILY [facility] Administration Atorvastatin Calcium 10 mg 05/16/18 22:00 05/17/18 22:23 Lipitor - PO 10 mg HS [facility] Administration Brimonidine Tartrate 1 drop 05/16/18 10:00 05/18/18 09:46 Alphagan 0.2% - OU 1 drop BID [facility] Administration Cholestyramine Resin 4 gm 05/16/18 11:30 05/18/18 09:45 Questran Light Packet - PO 4 gm BID [facility] Administration Clopidogrel Bisulfate 75 mg 05/16/18 10:00 05/18/18 09:46 Plavix - PO 75 mg DAILY [facility] Administration Metronidazole 500 mg in 100 mls @ 100 mls/hr 05/16/18 10:00 05/18/18 01:18 Flagyl 500mg Premixed Ivpb - IVPB 100 mls/hr Q8H-IV [facility] Administration Levofloxacin 500 mg in 100 mls @ 100 mls/hr 05/16/18 10:00 05/18/18 09:45 Levaquin 500 Mg Premixed Ivpb - IVPB 100 mls/hr DAILY [facility] Administration Protocol Dextrose/Sodium Chloride 500 mls @ 100 mls/hr 05/17/18 13:45 05/18/18 00:18 D5-1/3ns - IV 100 mls/hr ASDIR [facility] Administration Insulin Aspart 1 vial 05/16/18 11:00 05/18/18 06:21 Novolog Vial Sliding Scale - SQ Not Given ACHS [facility] Protocol Multivitamins/Minerals/Vitamin C 1 tab 05/16/18 10:00 05/18/18 09:45 Tab-A-Vit - PO 1 tab DAILY [facility] Administration Non-Formulary Medication 1 drop 05/16/18 10:00 Bimatoprost [Lumigan] IO DAILY [facility] Non-Formulary Medication 5 ml 05/16/18 14:00 Brinzolamide [Azopt] OP TID [facility] Oxycodone HCl 10 mg 05/17/18 20:03 05/18/18 09:45 Roxicodone - PO 10 mg Q8H PRN Administration PAIN 7-10 Timolol Maleate 1 drop 05/16/18 10:00 05/18/18 09:46 Timoptic 0.5% OU 1 drop BID [facility] Administration Zolpidem Tartrate 5 mg 05/16/18 22:31 05/17/18 01:12 Ambien - PO 5 mg HS PRN Administration INSOMNIA Impression 1. ABNER 2. CKD 3. COPD 4. DM 5. HTN 6. PVD 7. diarrhea 8. HLD 9. neuropathy 10. left renal simple cyst 11. hypernatremia Plan - renal function improving - sodium improved - pt does not want fluids - repeat labs in am - encourage PO intake and hydration - avoid nsaids and do not restart mobic on discharge - follow urine studies - can see in office after discharge Dr Paniagua
--- NOTE | 2018-05-18 14:01 | PN ---
Progress Note, Physician History of Present Illness: patient stable doing well no complaints dirrhoea has stopped in the room - Current Medication List Current Medications: Active Medications Acetaminophen (Tylenol -) 650 mg PO Q8H PRN PRN Reason: PAIN 7-10 Last Admin: 05/18/18 09:45 Dose: 650 mg Aspirin (Asa -) 81 mg PO DAILY [facility] Last Admin: 05/18/18 09:45 Dose: 81 mg Atorvastatin Calcium (Lipitor -) 10 mg PO HS [facility] Last Admin: 05/17/18 22:23 Dose: 10 mg Brimonidine Tartrate (Alphagan 0.2% -) 1 drop OU BID [facility] Last Admin: 05/18/18 09:46 Dose: 1 drop Cholestyramine Resin (Questran Light Packet -) 4 gm PO BID [facility] Last Admin: 05/18/18 09:45 Dose: 4 gm Clopidogrel Bisulfate (Plavix -) 75 mg PO DAILY [facility] Last Admin: 05/18/18 09:46 Dose: 75 mg Levofloxacin (Levaquin 500 Mg Premixed Ivpb -) 500 mg in 100 mls @ 100 mls/hr IVPB DAILY [facility]; Protocol Last Admin: 05/18/18 09:45 Dose: 100 mls/hr Sodium Chloride (1/2 Normal Saline) 1,000 mls @ 42 mls/hr IV ASDIR [facility] Stop: 05/19/18 10:00 Insulin Aspart (Novolog Vial Sliding Scale -) 1 vial SQ ACHS [facility]; Protocol Last Admin: 05/18/18 11:19 Dose: 4 units Multivitamins/Minerals/Vitamin C (Tab-A-Vit -) 1 tab PO DAILY [facility] Last Admin: 05/18/18 09:45 Dose: 1 tab Non-Formulary Medication (Bimatoprost [Lumigan]) 1 drop IO DAILY [facility] Non-Formulary Medication (Brinzolamide [Azopt]) 5 ml OP TID [facility] Oxycodone HCl (Roxicodone -) 10 mg PO Q8H PRN PRN Reason: PAIN 7-10 Last Admin: 05/18/18 09:45 Dose: 10 mg Timolol Maleate (Timoptic 0.5%) 1 drop OU BID [facility] Last Admin: 05/18/18 09:46 Dose: 1 drop Zolpidem Tartrate (Ambien -) 5 mg PO HS PRN PRN Reason: INSOMNIA Last Admin: 05/17/18 01:12 Dose: 5 mg - Objective Vital Signs: Vital Signs Temperature 97.8 F 05/18/18 10:00 Pulse Rate 55 L 05/18/18 10:00 Respiratory Rate 20 05/18/18 10:00 Blood Pressure 180/75 05/18/18 10:00 O2 Sat by Pulse Oximetry (%) 97 05/17/18 21:00 Constitutional: Yes: No Distress, Calm Cardiovascular: Yes: Regular Rate and Rhythm Respiratory: Yes: Regular, CTA Bilaterally Gastrointestinal: Yes: Normal Bowel Sounds, Soft Musculoskeletal: Yes: WNL Extremities: Yes: WNL Neurological: Yes: Alert, Oriented Psychiatric: Yes: Alert, Oriented Labs: CBC, BMP 05/17/18 06:00 05/18/18 07:00 Assessment/Plan Problem List - Problems (1) Diarrhea Code(s): R19.7 - DIARRHEA, UNSPECIFIED Qualifiers: Diarrhea type: unspecified type Qualified Code(s): R19.7 - Diarrhea, unspecified (2) CAD (coronary artery disease) Code(s): I25.10 - ATHSCL HEART DISEASE OF [place] CORONARY ARTERY W/O ANG PCTRS (3) HLD (hyperlipidemia) Code(s): E78.5 - HYPERLIPIDEMIA, UNSPECIFIED (4) COPD (chronic obstructive pulmonary disease) Code(s): J44.9 - CHRONIC OBSTRUCTIVE PULMONARY DISEASE, UNSPECIFIED plan will stop flagyl and monitor rect continue current mgmt advised not to drink a lot of sodas rest as per the team
[2018-05-18] MEDS: ATORVASTATIN CA 10 MG TABLET (FP) PO SCH (21:14)
[2018-05-18] MEDS ORDERED: SODIUM CHLORIDE 0.45% 1,000 ML IV SCH (22:00)
--- NOTE | 2018-05-18 22:08 | PN ---
Progress Note, Physician - Current Medication List Current Medications: Active Medications Acetaminophen (Tylenol -) 650 mg PO Q8H PRN PRN Reason: PAIN 7-10 Last Admin: 05/18/18 17:26 Dose: 650 mg Aspirin (Asa -) 81 mg PO DAILY [facility] Last Admin: 05/18/18 09:45 Dose: 81 mg Atorvastatin Calcium (Lipitor -) 10 mg PO HS [facility] Last Admin: 05/18/18 21:14 Dose: 10 mg Brimonidine Tartrate (Alphagan 0.2% -) 1 drop OU BID [facility] Last Admin: 05/18/18 21:15 Dose: 1 drop Cholestyramine Resin (Questran Light Packet -) 4 gm PO BID [facility] Last Admin: 05/18/18 21:19 Dose: Not Given Clopidogrel Bisulfate (Plavix -) 75 mg PO DAILY [facility] Last Admin: 05/18/18 09:46 Dose: 75 mg Levofloxacin (Levaquin 500 Mg Premixed Ivpb -) 500 mg in 100 mls @ 100 mls/hr IVPB DAILY [facility]; Protocol Last Admin: 05/18/18 09:45 Dose: 100 mls/hr Sodium Chloride (1/2 Normal Saline) 1,000 mls @ 42 mls/hr IV ASDIR [facility] Stop: 05/19/18 10:00 Insulin Aspart (Novolog Vial Sliding Scale -) 1 vial SQ ACHS [facility]; Protocol Last Admin: 05/18/18 21:21 Dose: Not Given Multivitamins/Minerals/Vitamin C (Tab-A-Vit -) 1 tab PO DAILY [facility] Last Admin: 05/18/18 09:45 Dose: 1 tab Non-Formulary Medication (Bimatoprost [Lumigan]) 1 drop IO DAILY [facility] Non-Formulary Medication (Brinzolamide [Azopt]) 5 ml OP TID [facility] Oxycodone HCl (Roxicodone -) 10 mg PO Q8H PRN PRN Reason: PAIN 7-10 Last Admin: 05/18/18 17:26 Dose: 10 mg Timolol Maleate (Timoptic 0.5%) 1 drop OU BID [facility] Last Admin: 05/18/18 21:15 Dose: 1 drop Zolpidem Tartrate (Ambien -) 5 mg PO HS PRN PRN Reason: INSOMNIA Last Admin: 05/17/18 01:12 Dose: 5 mg - Objective Vital Signs: Vital Signs Temperature 97.8 F 05/18/18 10:00 Pulse Rate 55 L 05/18/18 10:00 Respiratory Rate 20 05/18/18 10:00 Blood Pressure 180/75 05/18/18 10:00 O2 Sat by Pulse Oximetry (%) 97 05/17/18 21:00 Labs: CBC, BMP 05/17/18 06:00 05/18/18 07:00 Problem List - Problems (1) Diarrhea Code(s): R19.7 - DIARRHEA, UNSPECIFIED Qualifiers: Diarrhea type: unspecified type Qualified Code(s): R19.7 - Diarrhea, unspecified (2) CAD (coronary artery disease) Code(s): I25.10 - ATHSCL HEART DISEASE OF [place] CORONARY ARTERY W/O ANG PCTRS (3) HLD (hyperlipidemia) Code(s): E78.5 - HYPERLIPIDEMIA, UNSPECIFIED (4) COPD (chronic obstructive pulmonary disease) Code(s): J44.9 - CHRONIC OBSTRUCTIVE PULMONARY DISEASE, UNSPECIFIED
[2018-05-18] MEDS: ZOLPIDEM TARTRATE 5 MG TABLET PO PRN (23:08)
[2018-05-19] MEDS: ACETAMINOPHEN 325 MG TABLET (FP) PO PRN (04:08)
[2018-05-19] MEDS: oxyCODONE HCL 5 MG TABLET PO PRN (04:08)
[2018-05-19] MEDS: INSULIN SLIDING SCALE (NOVOLOG) 1 VIAL SQ SCH ×2 (06:13→11:20)
[2018-05-19] MEDS ORDERED: FUROSEMIDE 40 MG/4 ML INJECTABLE VIAL IVPUSH ONE (08:00)
[2018-05-19 09:16] LABS: CHLORIDE 117 mmol/L (98-107); POTASSIUM 4.2 mmol/L (3.5-5.1); SODIUM 146 mmol/L (136-145)
[2018-05-19 09:22] LABS: ANION GAP 10 (8-16); BLOOD UREA NITROGEN 22 mg/dL (7-18); CALCIUM 8.2 mg/dL (8.5-10.1); CO2 19 mmol/L (21-32); CREATININE 1.8 mg/dL (0.7-1.3); GLUCOSE,RANDOM 123 mg/dL (74-106)
--- NOTE | 2018-05-19 10:54 | PN ---
Progress Note, Physician History of Present Illness: stable now no dirrhoea patient doing well all reports negative so far - Current Medication List Current Medications: Active Medications Acetaminophen (Tylenol -) 650 mg PO Q8H PRN PRN Reason: PAIN 7-10 Last Admin: 05/19/18 04:08 Dose: 650 mg Aspirin (Asa -) 81 mg PO DAILY [facility] Last Admin: 05/18/18 09:45 Dose: 81 mg Atorvastatin Calcium (Lipitor -) 10 mg PO HS [facility] Last Admin: 05/18/18 21:14 Dose: 10 mg Brimonidine Tartrate (Alphagan 0.2% -) 1 drop OU BID [facility] Last Admin: 05/18/18 21:15 Dose: 1 drop Cholestyramine Resin (Questran Light Packet -) 4 gm PO BID [facility] Last Admin: 05/18/18 21:19 Dose: Not Given Clopidogrel Bisulfate (Plavix -) 75 mg PO DAILY [facility] Last Admin: 05/18/18 09:46 Dose: 75 mg Levofloxacin (Levaquin 500 Mg Premixed Ivpb -) 500 mg in 100 mls @ 100 mls/hr IVPB DAILY [facility]; Protocol Last Admin: 05/18/18 09:45 Dose: 100 mls/hr Insulin Aspart (Novolog Vial Sliding Scale -) 1 vial SQ ACHS [facility]; Protocol Last Admin: 05/19/18 06:13 Dose: Not Given Multivitamins/Minerals/Vitamin C (Tab-A-Vit -) 1 tab PO DAILY [facility] Last Admin: 05/18/18 09:45 Dose: 1 tab Non-Formulary Medication (Bimatoprost [Lumigan]) 1 drop IO DAILY [facility] Non-Formulary Medication (Brinzolamide [Azopt]) 5 ml OP TID [facility] Oxycodone HCl (Roxicodone -) 10 mg PO Q8H PRN PRN Reason: PAIN 7-10 Last Admin: 05/19/18 04:08 Dose: 10 mg Timolol Maleate (Timoptic 0.5%) 1 drop OU BID [facility] Last Admin: 05/18/18 21:15 Dose: 1 drop Zolpidem Tartrate (Ambien -) 5 mg PO HS PRN PRN Reason: INSOMNIA Last Admin: 05/18/18 23:08 Dose: 5 mg - Objective Vital Signs: Vital Signs Temperature 97.9 F 05/19/18 06:00 Pulse Rate 63 05/19/18 06:00 Respiratory Rate 20 05/19/18 06:00 Blood Pressure 184/83 05/19/18 06:00 O2 Sat by Pulse Oximetry (%) 97 05/17/18 21:00 Constitutional: Yes: No Distress, Calm Cardiovascular: Yes: Regular Rate and Rhythm Respiratory: Yes: Regular, CTA Bilaterally Gastrointestinal: Yes: Normal Bowel Sounds, Soft Musculoskeletal: Yes: WNL Extremities: Yes: WNL Neurological: Yes: Alert, Oriented Psychiatric: Yes: Alert, Oriented Labs: CBC, BMP 05/17/18 06:00 05/19/18 07:25 Assessment/Plan Problem List - Problems (1) Diarrhea Code(s): R19.7 - DIARRHEA, UNSPECIFIED Qualifiers: Diarrhea type: unspecified type Qualified Code(s): R19.7 - Diarrhea, unspecified (2) CAD (coronary artery disease) Assessment/Plan: Cont plavix Code(s): I25.10 - ATHSCL HEART DISEASE OF [place] CORONARY ARTERY W/O ANG PCTRS (3) HLD (hyperlipidemia) Assessment/Plan: Cont lipitor Code(s): E78.5 - HYPERLIPIDEMIA, UNSPECIFIED (4) COPD (chronic obstructive pulmonary disease) Code(s): J44.9 - CHRONIC OBSTRUCTIVE PULMONARY DISEASE, UNSPECIFIED looking at the history and patient symptoms there is worry that the patient might have infecve dirrhoea plan no abx patient doing good dirrhoea resolved continue current mgmt
[2018-05-19] MEDS: CLOPIDOGREL BISULFATE 75 MG TABLET (FP) PO SCH (11:00)
[2018-05-19] MEDS: ASPIRIN 81 MG CHEWABLE TABLETS PO SCH (11:00)
[2018-05-19] MEDS: BRIMONIDINE TARTRATE 0.2% OPHTHALMIC 5 ML BOTTLE OU SCH (11:01)
[2018-05-19] MEDS: CHOLESTYRAMINE/ASPARTAME 4 GM PACKET PO SCH (11:01)
[2018-05-19] MEDS: MULTIVITAMINS (DAILY MVI) TABLET (FP) PO SCH (11:01)
[2018-05-19] MEDS: TIMOLOL 0.5% OPHTHALMIC SOL 5 ML BOTTLE OU SCH (11:02)
[2018-05-19 11:40] VITALS: BP 146/67; PULSE 62; TEMP 98
--- NOTE | 2018-05-19 14:45 | DS ---
Physical Examination Vital Signs: Vital Signs Temperature 98.0 F 05/19/18 08:00 Pulse Rate 62 05/19/18 08:00 Respiratory Rate 20 05/19/18 08:00 Blood Pressure 146/67 05/19/18 08:00 O2 Sat by Pulse Oximetry (%) 97 05/19/18 08:00 Labs: CBC, BMP 05/17/18 06:00 05/19/18 07:25 Discharge Summary Reason For Visit: DIARRHEA,DEHYDRATION Condition: Good - Instructions Diet, Activity, Other Instructions: 2200 calorie diabetic diet and 2 gram sodium diet See Dr Orellana in 1 week Referrals: Jermaine Orellana MD [Primary Care Provider] - Disposition: HOME - Home Medications Comprehensive Discharge Medication List: Ambulatory Orders Aspirin [ASA -] 81 mg PO DAILY #0 tab.chew 05/18/13 Clopidogrel Bisulfate [Plavix -] 75 mg PO DAILY #0 tablet 05/18/13 Multivitamin [Multiple Vitamins] 1 each PO DAILY #0 tablet 05/18/13 Simvastatin [Zocor -] 20 mg PO HS #0 tablet 05/18/13 metFORMIN HCL [Glucophage -] 500 mg PO BID #0 tablet 05/18/13 Oxycodone HCl/Acetaminophen [Percocet 10-325 mg Tablet] 1 - 2 tab PO Q4H PRN 03/25 Meloxicam 7.5 mg PO DAILY 09/15/16 Albuterol Sulfate Inhaler - [Ventolin HFA Inhaler -] 1 - 2 inh PO QID PRN Zolpidem Tartrate [Ambien] 10 mg GT HS PRN #30 tablet MDD 1 01/06/17 Bimatoprost [Lumigan] 1 drop IO DAILY 05/16/18 Brimonidine Tartrate/Timolol [Combigan 0.2%-0.5% Eye Drops] 5 ml OP BID Brinzolamide [Azopt] 5 ml OP TID 05/16/18 Ketorolac Tromethamine/Pf [Acuvail 0.45% Ophth Solution] 1 each OP QID 05/16/18 Brimonidine Tartrate [Alphagan 0.2% -] 1 drop OU BID drops 05/19/18 Timolol 0.5% [Timoptic 0.5%] 1 drop OU BID drops 05/19/18 Zolpidem Tartrate [Ambien] 5 mg PO HS PRN #30 tablet MDD 1 05/19/18 oxyCODONE HCL [Roxicodone -] 10 mg PO Q8H PRN #30 tablet MDD 3 05/19/18
== END 2018-05-19 13:12 | disposition home or self-care (01) | DRG 683 ==
LOC: JER 22:39 → JERBED 05-16 04:35 → J6S 05-16 15:23
PROVIDERS: ADMIT Internal Medicine; ATTEND Internal Medicine
DX: N17.9 Acute kidney failure, unspecified (principal); E87.0 Hyperosmolality and hypernatremia; E86.0 Dehydration; K52.9 Noninfective gastroenteritis and colitis, unspecified; J44.9 Chronic obstructive pulmonary disease, unspecified; E11.40 Type 2 diabetes mellitus with diabetic neuropathy, unspecified; H40.9 Unspecified glaucoma; E78.5 Hyperlipidemia, unspecified; F17.210 Nicotine dependence, cigarettes, uncomplicated; Z79.84 Long term (current) use of oral hypoglycemic drugs; I12.9 Hypertensive chronic kidney disease with stage 1 through stage 4 chronic kidney disease, or unspecified chronic kidney disease; E11.22 Type 2 diabetes mellitus with diabetic chronic kidney disease; N18.9 Chronic kidney disease, unspecified; E11.51 Type 2 diabetes mellitus with diabetic peripheral angiopathy without gangrene; N28.1 Cyst of kidney, acquired; I25.10 Atherosclerotic heart disease of native coronary artery without angina pectoris
CPT/HCPCS: 36415; 71045-TC-FY; 74176-TC; 76775-TC; 80048; 80053; 81003; 81015; 82436; 82550; 82570; 82962; 84133; 84300; 84439; 84443; 84484; 85025; 87045; 87046; 87177; 87205; 87209; 87324; 87449; 93005; 93010; 99283-25; J7030